=== PATIENT | male | born 1990 | race Caucasian/White ===

== ENCOUNTER 2021-07-22 18:21 | Emergency (ER) | payer OTHER ==
[~2021-07-22] VITALS: Ht 180.3 cm; Wt 85.5 kg
--- OUTSIDE RECORDS SUMMARY | 2021-07-22 18:27 | CCD ---
Author Author [facility] Address Unknown Phone Unavailable Support Name Relationship Address Phone [place] [address] BOB PRINCE Next Of Kin [address] [place] [address] Re-disclosure Warning The records that you are about to access may contain information from federally-assisted alcohol or drug abuse programs. If such information is present, then the following federally mandated warning applies: This information has been disclosed to you from records protected by federal confidentiality rules (42 CFR part 2). The federal rules prohibit you from making any further disclosure of this information unless further disclosure is expressly permitted by the written consent of the person to whom it pertains or as otherwise permitted by 42 CFR part 2. A general authorization for the release of medical or other information is NOT sufficient for this purpose. The Federal rules restrict any use of the information to criminally investigate or prosecute any alcohol or drug abuse patient.The records that you are about to access may contain highly sensitive health information, the redisclosure of which is protected by Article 27-F of the [facility] Public Health law. If you continue you may have access to information: Regarding HIV / AIDS; Provided by facilities licensed or operated by the [facility] Office of Mental Health; or Provided by the [facility] Office for People With Developmental Disabilities. If such information is present, then the following [facility] mandated warning applies: This information has been disclosed to you from confidential records which are protected by state law. State law prohibits you from making any further disclosure of this information without the specific written consent of the person to whom it pertains, or as otherwise permitted by law. Any unauthorized further disclosure in violation of state law may result in a fine or senior care sentence or both. A general authorization for the release of medical or other information is NOT sufficient authorization for further disc losure. Medications No Information Insurance Providers Payer name Policy type / Coverage type Policy ID Covered democrat ID Covered democrat's relationship to story Policy Story Plan Information [facility] [id number] Problems, Conditions, and Diagnoses No Information Surgeries/Procedures No Information Results No Information Social History No Information
[2021-07-22] MEDS ORDERED: IBUP80TA PO (18:43)
--- OUTSIDE RECORDS SUMMARY | 2021-07-22 20:46 | CCD ---
Author Author [facility] Address Unknown Phone Unavailable Support Name Relationship Address Phone [place] [address] BOB PRINCE Next Of Kin [address] [place] [address] Re-disclosure Warning The records that you are [...] is protected by Article 27-F of the [facility] Public Health law. If you continue you may have access to information: Regarding HIV / AIDS; Provided by facilities licensed or operated by the [facility] Office of Mental Health; or Provided by the [facility] Office for People With Developmental Disabilities. If such information is present, then the following [facility] mandated warning applies: This information has [...] law may result in a fine or [place] [facility] [place] sentence or both. A general authorization for the release of medical or other information is NOT sufficient authorization for further disc losure. Medications No Information Insurance Providers Payer name Policy type / Coverage type Policy ID Covered green party ID Covered green party's relationship to story Policy Story Plan Information [facility] [id number] [facility] [id number] [facility] [id number] Problems, Conditions, and Diagnoses No Information Surgeries/Procedures No Information Results No Information Social History No Information
[2021-07-22 21:07] LABS: BASO % 0.5 % (0.0-1.0); EOS # 0.3 10^3/uL (0.0-0.5); EOS % 3.9 % (0.0-3.0); HEMATOCRIT 44.5 % (42.0-52.0); HEMOGLOBIN 15.2 g/dl (13.5-17.5); LYMPH # 2.5 10^3/uL (1.5-5.0); LYMPH % 32.7 % (24.0-44.0); MEAN CORPUSCULAR HEMOGLOBIN 30.5 pg (27.0-33.0); MEAN CORPUSCULAR HGB CONC 34.2 g/dl (32.0-36.5); MEAN CORPUSCULAR VOLUME 89.2 fl (80.0-96.0); MONO # 0.6 10^3/uL (0.0-0.8); MONO % 7.6 % (2.0-8.0); NEUTROPHILS # 4.3 10^3/uL (1.5-8.5); PLATELET COUNT, AUTOMATED 278 10^3/uL (150-450); RED BLOOD COUNT 4.99 10^6/uL (4.30-6.10); WHITE BLOOD COUNT 7.7 10^3/uL (4.0-10.0)
[2021-07-22] MEDS ORDERED: ISOVUE-370 76% 100ML VIAL As Ordered ONE (21:46)
[2021-07-22 21:47] LABS: ALBUMIN 4.2 GM/DL (3.2-5.2); ALT/SGPT 31 U/L (12-78); BILIRUBIN,DIRECT < 0.1 MG/DL (0.0-0.2); BILIRUBIN,TOTAL 0.4 MG/DL (0.2-1.0); BLOOD UREA NITROGEN 9 MG/DL (7-18); CALCIUM LEVEL 8.8 MG/DL (8.5-10.1); CARBON DIOXIDE LEVEL 28 MEQ/L (21-32); CHLORIDE LEVEL 107 MEQ/L (98-107); CREATININE FOR GFR 0.87 MG/DL (0.70-1.30); GLOMERULAR FILTRATION RATE > 60.0 (>60); GLUCOSE, FASTING 103 MG/DL (70-100); LIPASE 108 U/L (73-393); SODIUM LEVEL 140 MEQ/L (136-145); TOTAL PROTEIN 7.3 GM/DL (6.4-8.2)
[2021-07-22 22:46] LABS: GC DNA AMPLIFICATION NEGATIVE (NEGATIVE)
--- NOTE | 2021-07-22 23:27 | REPVR ---
PROCEDURE INFORMATION: Exam: CT Abdomen And Pelvis With Contrast Exam date and time: 07/22/2021 10:19 PM Age: 30 years old Clinical indication: Abdominal pain; Localized; Left lower quadrant (llq); Additional info: Llq pain into L testicle, palpable bulge in groin TECHNIQUE: Imaging protocol: Computed tomography of the abdomen and pelvis with contrast. Radiation optimization: All CT scans at this facility use at least one of these dose optimization techniques: automated exposure control; mA and/or kV adjustment per patient size (includes targeted exams where dose is matched to clinical indication); or iterative reconstruction. Contrast material: ISOVUE 370; Contrast volume: 100 ml; Contrast route: INTRAVENOUS (IV); COMPARISON: None FINDINGS: LUNG BASES: Minimal dependent atelectasis. VASCULAR: Major vasculature is within normal limits. PERITONEAL : No free air or free fluid. GI: No hiatal hernia. The stomach contains some ingested material and gas. The stomach is not sufficiently distended to evaluate wall thickening. Non-specific fluid-filled loops of small bowel are seen. No appearance of a bowel obstruction. No focal mesenteric inflammation. Small nonspecific mesenteric lymph nodes are noted. Scattered fecal material and gas within portions of the colon and rectum. No pericolonic inflammatory stranding. No evidence of acute diverticulitis. The appendix does not appear inflamed. No bowel containing body wall hernia. HEPATOBILIARY, PANCREAS, SPLEEN: Hepatic length is 16 cm. Attenuation of the liver is consistent with mild fatty infiltration. Partially contracted gallbladder. No calcified gallstones. The gallbladder wall appears thick, however this may be artifactual secondary to insufficient distention. If there are symptoms related to the gallbladder, consider ultrasound. No biliary dilation. No pancreatic inflammation. Spleen not enlarged. ADRENALS, KIDNEYS, BLADDER, RETROPERITONEAL: Adrenals within normal limits. No hydronephrosis. Symmetric renal enhancement. No perinephric stranding or fluid. No renal calcifications. No ureteral calcifications. No calcifications within the urinary bladder. No bladder wall thickening. No perivesical stranding. The prostate does not appear enlarged. By imaging, it is uncertain what the described "palpable bulge in groin" corresponds with. No obvious soft tissue protrusions are seen. There is prominent fat within the left inguinal canal. No bowel containing inguinal hernias seen. Pampiniform plexus vessels on the left appear asymmetrically enlarged compared to the right suggesting varicosities. Testicular vascularity is not reliably assessed by this technique. Clinical correlation is advised. If symptoms persist or worsen, consider placement of a surface marker, over the palpable abnormality and follow-up by ultrasound. MUSCULOSKELETAL: No acute findings. IMPRESSION: Slight prominent vascularity within the left pampiniform plexus could be correlated for varicosities. Other genitourinary findings and recommendations discussed above. Other incidental findings discussed above. Electronically signed by: Tony Peace On 07/22/2021 23:26:30 PM
[2021-07-22] MEDS ORDERED: KETOROLAC 30 MG/ML 1ML VIAL IV ONE (23:40)
[2021-07-22 23:56] VITALS: BP 123/65
== END 2021-07-22 23:57 | disposition home or self-care (01) ==
LOC: M ED 18:21
DX: I86.1 Scrotal varices (principal)
CPT/HCPCS: 74177; 76870; 80047; 80048; 80076; 81001; 83690; 85025; 87491; 87591; 93976; 96374; 99284; J1885; Q9967

== ENCOUNTER → 2021-07-22 | Outpatient (CLI) | payer OTHER ==
[~2021-07-22] MED LIST: IBUP80TA PO
--- NOTE | 2021-07-22 14:16 | REP ---
INDICATION: TESTICULAR PAIN. COMPARISON: None. TECHNIQUE: Real-time sonographic evaluation of the testicles with Doppler FINDINGS: The right testicle measures 3.6 x 2.1 x 2.8 cm and the left testicle measures 3.8 x 1.9 x 2.9 cm. The testicular parenchymal echo pattern and vascular pattern is within normal limits bilaterally. Incidental note is made of multiple right-sided spermatoceles the largest measuring 3 mm. In the region of pampiniform plexus on the right there are multiple dilated tubular and serpiginous anechoic structures the maximal diameter of which and resting measures 2.7 mm increasing to 3.2 mm on Valsalva. The right testicular RI is 0.55 and the left is 0.45. IMPRESSION: 1. There is no acute abnormality. 2. Right-sided varicoceles. 3. Incidental right-sided spermatoceles <Electronically signed by Shade Sanchez > 07/22/21 [id number]
== END ==
LOC: M RAD 13:31
PROVIDERS: ATTEND Physician Assistant Medical
DX: I86.1 Scrotal varices (principal)

== ENCOUNTER → 2021-08-13 | Outpatient (REF) | payer OTHER ==
[2021-08-13 08:55] LABS: SEMEN APPEARANCE OPAQUE (OPAQUE); SEMEN VISCOSITY LIQUID (LIQUID); SEMEN VOLUME 4.3 ml (2.0-5.0); WBC CONCENTRATION <=1 M/ml (<=1 M/ml)
== END ==
LOC: M LAB REF 08:36
PROVIDERS: ATTEND Nurse Practitioner Primary Care
DX: N46.8 Other male infertility (principal)

== ENCOUNTER 2021-09-08 06:00 | Day surgery (SDC) | payer OTHER ==
[~2021-09-08] VITALS: Ht 180.3 cm; Wt 85.2 kg
[~2021-09-08 06:00] MED LIST changes: +LR 1,000 ML IV ONE; +ceFAZolin SOD 2 GM in IV 1 EA IV ONE
--- OUTSIDE RECORDS SUMMARY | 2021-09-08 06:04 | CCD ---
Author Author [facility] [employer] [facility] Organization [employer] [facility] Address Unknown Phone Unavailable Care Team Providers Care Bus Escort Name Role Phone DilipchengAlireza Unavailable PROBLEMS No Information ALLERGIES No Known Allergies ENCOUNTERS from 1989 to 2021-08-27 Encounter Location Date Provider Diagnosis [facility] [address] [phone] [place] [address] Jul, Alireza Abrams IMMUNIZATIONS No Information SOCIAL HISTORY Tobacco Use: Social History Observation Description Date Details (start date - stop date) Never Smoker Sex Assigned At : Social History Observation Description Sex Assigned At Unknown Language: Question Answer Notes Languages spoken: Uzbek Sexual Hx: Question Answer Notes Had sex in the last 12 months (vaginal, oral, or anal)? Yes Have you ever had an STD? No Prevention Strategies discussed: Other with Women only Use protection? No Alcohol Screening: Question Answer Notes Did you have a drink containing alcohol in the past year? Ye s Points 0 Interpretation Negative How many drinks did you have on a typica l day when you were drinking in the past year? 1 or 2 (0 points) How often did you have a drink containing alcohol in t he past year? Never (0 points) Tobacco Use: Question Answer Notes Are you a: never smoker REASON FOR REFERRAL No Information VITAL SIGNS No information MEDICATIONS Medication SIG (Take, Route, Frequency, Duration) Notes Start Da te End Date Status Co Q-10 100 MG as directed Orally Ac tive PROCEDURES No Information RESULTS No Results REASON FOR VISIT semen analysis and follow up MEDICAL (GENERAL) HISTORY Type Description Date Medical History VERICOCELE Surgical History WISDOM TEETH REMOVAL Goals Section No Information Health Concerns No Information MEDICAL EQUIPMENT No Information MENTAL STATUS No Information FUNCTIONAL STATUS No Information ASSESSMENTS No Information PLAN OF TREATMENT No Information Insurance Providers Payer Name Payer Address Payer Phone Insured Name Patient Relati onship to Insured Coverage Start Date Coverage End Date LOCATED WITHIN [facility] ACTIVE DUTY [facility] [id number] [facility] [place] [address] BERKLEY PRINCE
--- OUTSIDE RECORDS SUMMARY | 2021-09-08 06:04 | CCD ---
Author Author [facility] Address Unknown Phone Unavailable Support Name Relationship Address Phone Next Of Kin [address] [place], [place] [id number] BOB PRINCE Next Of Kin [address] [place] [address] BOB PRINCE [facility] [address] [place] [address] Unavailable Re-disclosure Warning The records that you are [...] is protected by Article 27-F of the [facility] Public Health law. If you continue you may have access to information: Regarding HIV / AIDS; Provided by facilities licensed or operated by the [facility] Office of Mental Health; or Provided by the [facility] Office for People With Developmental Disabilities. If such information is present, then the following [facility] mandated warning applies: This information has been [...] may result in a fine or senior living sentence or both. A general authorization for the release of medical or other information is NOT sufficient authorization for further disc losure. Encounters Encounter Providers Location Date Indications Data Source(s ) Unknown [address] [facility], [facility] [address] 08/19/2021 12:00:00 AM EST [email or web address] ([facility]) Medications No Information Insurance Providers Payer name Policy type / Coverage type Policy ID Covered alliance party ID Covered alliance party's relationship to story Policy Story Plan Information [facility] [id number] [facility] ACTIVE DUTY [id number] [facility] [id number] [facility] [id number] Problems, Conditions, and Diagnoses No Information Surgeries/Procedures No Information Results No Information Social History Code Duration Value Status Description Data Source(s ) Smoking 08/12/2021 12:00:00 AM EST Never Smoker completed [email or web address]
[2021-09-08] MEDS ORDERED: DESFLURANE 240 ML INHALANT As Ordered ONE (07:00)
[2021-09-08] MEDS ORDERED: LIDOCAINE 2% 100MG/5ML SDV (FOR ANES.) As Ordered ONE (07:06)
[2021-09-08] MEDS ORDERED: MIDAZOLAM INJ 2MG/2ML VIAL (J2250 PER 1MG) As Ordered ONE (07:06)
[2021-09-08] MEDS ORDERED: propofoL 200 MG/20 ML VIAL As Ordered ONE ×2 (07:06→07:36)
[2021-09-08] MEDS ORDERED: dexameTHASONE 4 MG/ML 1ML VIAL (J1100 PER 1MG) As Ordered ONE (07:07)
[2021-09-08] MEDS ORDERED: fentaNYL 100 MCG/2 ML INJECTION (J3010) As Ordered ONE ×2 (07:07→07:57)
[2021-09-08] MEDS ORDERED: ONDANSETRON 4MG/2ML VIAL As Ordered ONE (07:07)
[2021-09-08] MEDS ORDERED: LIDOCAINE 1% SDV 30ML VIAL As Ordered ONE (07:34)
[2021-09-08] MEDS ORDERED: BUPIVACAINE HCL 0.25% 30ML VIAL As Ordered ONE (07:34)
[2021-09-08] MEDS ORDERED: SUCCINYLCHOLINE 100 MG/5 ML SYRINGE (J0330) As Ordered ONE (07:43)
[2021-09-08] MEDS ORDERED: ACETAMINOPHEN 1000MG 100ML IV BTL (OFIRMEV) (J0131 PER 10MG) As Ordered ONE (07:57)
[2021-09-08] MEDS ORDERED: BACT800T5 PO (08:54)
[2021-09-08] MEDS ORDERED: HYDR-3713 PO (08:54)
--- NOTE | 2021-09-08 08:58 | ROOPDOC ---
[facility] Report Of Operation Report of Operation DATE OF PROCEDURE: 09/08/21 PREPROCEDURE DIAGNOSES: [left varicocele by exam and ct, scrotal pain, infertility]. POSTPROCEDURE DIAGNOSES: same PROCEDURE PERFORMED: [left varicocelectomy with Doppler and loupes]. SURGEON: [Sarah Richter MD INVASIVE PHYSICIAN: [none], ANESTHESIA: [general]. ESTIMATED BLOOD LOSS: Approximately [1] mL. COMPLICATIONS: [none]. REMARKS: [30yo wm with left varicocele. Left scrotal pain and infertility as well. Surgery arranged. No guarantees given as to success. Risks discussed including infection, pain, bleeding, scarring, failure of surgery, need for more surgery, injury to normal tissues such as artery, lymph and others, recurrence of varicocele, hydrocele formation and others.]. FINDINGS: SPECIMENS REMOVED: [none] PROCEDURE NOTE: . DESCRIPTION OF PROCEDURE: [I met with the patient before surgery and answered his questions. He wished to proceed. Examination in the preop area revealed a left varicocele. Patient brought to the OR room. General anesthesia was secured without difficulty. Supine position. Well-padded. Prepped and draped in sterile fashion. A timeout was performed. Surgery was done under antimicrobial coverage. A left inguinal incision was made. It was carried down using cautery. The cord below the external inguinal ring was mobilized and delivered. It was held in place with a tongue depressor. The cord was thoroughly inspected. Loupes were used. Dilated veins were ligated with silk ties and divided. Care was taken to find an arterial signal with Doppler. This was done several times throughout the surgery. An arterial signal was present at the end. Lymphatic vessels were spared. The vas deferens was isolated off the bat and was not injured. Once satisfied the area beneath the cord was inspected for veins. None were found. The cord was then released. Again an arterial signal was present at the end. The subcutaneous tissue was closed with 3-0 Vicryl interrupted stitches. 4-0 Monocryl was used for a subcuticular stitch. The area was cleaned and dried. Steri-Strips and Dermabond were used. Patient tolerated everything well left the room in satisfactory condition peer]. AGUSTÍN RICHTER MD Sep 08, 2021 08:58
[2021-09-08] MEDS ORDERED: ONDANSETRON 4MG/2ML VIAL IV PRN (09:25)
[2021-09-08] MEDS ORDERED: PERCOCET 5MG/325MG TAB PO PRN (09:25)
[2021-09-08] MEDS ORDERED: METOCLOPRAMIDE INJ 10MG/2ML VIAL (J2765 PER 1) IV PRN (09:25)
[2021-09-08] MEDS ORDERED: LR 1,000 ML IV SCH ×2 (09:25→09:30)
[2021-09-08] MEDS ORDERED: fentaNYL 100 MCG/2 ML INJECTION (J3010) IV PRN (09:25)
[2021-09-08 09:50] VITALS: BP 130/75
== END 2021-09-08 09:40 | disposition home or self-care (01) ==
LOC: M SDC 06:00
PROVIDERS: ATTEND Urology
DX: I86.1 Scrotal varices (principal); N50.82 Scrotal pain; N46.9 Male infertility, unspecified
CPT/HCPCS: 55535; J0131; J0330; J0690; J1100; J2250; J2405; J3010

== ENCOUNTER → 2021-12-16 | Outpatient (REF) | payer OTHER ==
[~2021-12-16] MED LIST changes: +BACT800T5 PO; +HYDR-3713 PO; -LR 1,000 ML IV ONE; -ceFAZolin SOD 2 GM in IV 1 EA IV ONE
[2021-12-16 09:15] LABS: SEMEN APPEARANCE OPAQUE (OPAQUE)
[2021-12-16 09:16] LABS: SEMEN VISCOSITY LIQUID (LIQUID); SEMEN VOLUME 5.2 ml (2.0-5.0); SPERM CONCENTRATION 10.9 M/ml (>=15.0); WBC CONCENTRATION >1 M/ml (<=1 M/ml)
== END ==
LOC: M SMT 09:10
PROVIDERS: ATTEND Physician Assistant
DX: I86.1 Scrotal varices (principal)